=== PATIENT | female | born 1995 ===

== ENCOUNTER 2023-01-08 19:38 | Emergency (ER) | payer OTHER, SELFPAY ==
[2023-01-08 19:57] VITALS: BP 122/87; PULSE 89; RESP 16; TEMP 36.8; O2SAT 98; BMI 22.3
--- NOTE | 2023-01-08 19:58 | ED.URI ---
HPI - URI/Sore Throat General Chief Complaint: Allergic Reaction Stated Complaint: difficulty swallowing Time Seen by Provider: 01/08/23 22:22 Related Data Allergies Allergy/AdvReac Type Severity Reaction Status Date / Time No Known Allergies Allergy Verified 01/08/23 20:03 [facility] Social History Social History Alcohol intake: never Smoked in Last 30 Days: No Advance Directives: No Advance Directives Information Provided: No Physical Exam Vital Signs: Vital Signs: Last Vital Signs Temp 98 F 01/08/23 22:13 Pulse 64 01/08/23 22:13 Resp 12 01/08/23 22:13 BP 100/55 L 01/08/23 22:13 Pulse Ox 100 01/08/23 22:13 O2 Del Method Room Air 01/08/23 22:13 BMI result Body Mass Index 22.3 Course Course Course Narrative: RME: 27yo F w/no sig PMHx c/o sore throat swelling & swollen tongue since 3PM s/p taking new supplement. Also reports mild SOB and palpitations. Admit symptoms began right after taking new medication. Denies cough Talking in complete sentences, handling secretions, oropharynx WNL, uvula midline, no appreciable tongue swelling Benadryl, Pepcid, Claritin ordered Full HPI, ROS and PE to be performed by primary ED provider. Medications Administered Discontinued Medications Generic Name Dose Route Start Last Admin Trade Name Freq PRN Reason Stop Dose Admin Diphenhydramine HCl 50 mg 01/08/23 20:03 01/08/23 20:38 Diphenhydramine Hcl 25 Mg Capsule PO 01/08/23 20:04 50 mg ONCE ONE Administration Famotidine 20 mg 01/08/23 20:03 01/08/23 20:38 Famotidine 20 Mg Tablet PO 01/08/23 20:04 20 mg ONCE ONE Administration Loratadine 10 mg 01/08/23 20:03 01/08/23 20:38 Loratadine 10 Mg Tablet PO 01/08/23 20:04 10 mg ONCE ONE Administration Discharge Plan Discharge Clinical Impression: Allergic reaction Patient Disposition: Home, Self-Care Instructions: General Allergic Reaction (ED) Additional Instructions: Stay away from caffeinated drinks Referrals: Physician,Unknown J [Primary Care Provider] - Interventions: ED Discharge Assessment Last Done: 01/08/23 22:57 Discharge Date/Time: 01/08/23 22:58
[2023-01-08] MEDS: diphenhydrAMINE HCL 25 MG CAPSULE 50 MG PO (20:38)
[2023-01-08] MEDS: Loratadine 10 MG TABLET PO (20:38)
[2023-01-08] MEDS: Famotidine 20 MG TABLET PO (20:38)
--- NOTE | 2023-01-08 21:54 | PC.NURSE ---
pt medicated per MAR, pt denies SOB, CP, tongue swelling- resting quietly at this time, call [facility] within reach. awaiting provider eval
[2023-01-08 22:13] VITALS: BP 100/55; PULSE 64; RESP 12; TEMP 36.6; O2SAT 100
--- NOTE | 2023-01-08 22:47 | ED.ALLEREA ---
HPI - Allergic Reaction General Chief complaint: Allergic Reaction Stated complaint: difficulty swallowing Time Seen by Provider: 01/08/23 22:22 Source: patient Mode of arrival: ambulatory Limitations: no limitations History of Present Illness HPI narrative: 27-year-old female came in for evaluation symptoms after drink caffeinated drink. Patient had few sips of H&D caffeinated drink followed by face was flushed, became diaphoretic, felt palpitation and her heart is going fast. Symptoms lasted for about 1-2 hours. Patient also felt dry throat and feeling thirsty. No difficulty breathing. No chest pain. Related Data Allergies Allergy/AdvReac Type Severity Reaction Status Date / Time No Known Allergies Allergy Verified 01/08/23 20:03 Review of Systems Review of Systems: All other systems are reviewed and are negative Constitutional: Reports as per HPI and Reports no additional constitutional complaints Eyes: Reports as per HPI and Reports no additional eye complaints Reports system reviewed and no additional complaints, except as documented Cardiovascular: Reports as per HPI and Reports no additional cardiovascular complaints Respiratory: Reports as per HPI and Reports no additional respiratory complaints Gastrointestinal: Reports as per HPI and Reports no additional gastrointestinal complaints Genitourinary: Reports no additional female genitourinary complaints Musculoskeletal: Reports no additional musculoskeletal complaints Skin/Breast: Reports system reviewed and no additional complaints, except as docu Psychiatric: Reports no additional psychiatric complaints Endocrine: Reports no additional endocrine complaints Hematologic/Lymphatic: Reports no additional hematologic/lymphatic complaints Allergic/Immunologic: Reports no additional allergic/immunologic complaints Reports system reviewed and no additional complaints, except as documented and Reports Abnormal speech present PMFSH Social History Social History Alcohol intake: never Smoked in Last 30 Days: No Advance Directives: No Advance Directives Information Provided: No Physical Exam ED Vital Signs: Vital Signs - 24 hr 01/08/23 19:57 01/08/23 22:13 Temperature 98.2 F 98 F Pulse Rate 89 64 Respiratory Rate 16 12 Blood Pressure 122/87 100/55 L Pulse Oximetry 98 100 Oxygen Delivery Method Room Air Room Air BMI result Body Mass Index 22.3 Vital signs have been reviewed as appeared to be correct. Blood pressure normal. Heart rate normal. Respiration rate normal. Temperature normal. Oxygen saturation normal. Appearance: Alert. Oriented X3. No acute distress. Head: Normal external exam. Normocephalic. Atraumatic. No Harris signs noted. No raccoon eyes noted Eyes: PERRLA. EOMI. Conjunctiva and sclera normal. Eyelids normal. ENT: TM's Normal. Pharynx normal. Uvula midline. Moist mucous membranes. No trismus noted. No drooling noted. No muffled voice noted. Patent airway, no stridor. Neck: Normal inspection. Neck supple. FROM. No adenopathy. Thyroid Normal. No meningeal signs. No neck mass noted. CVS: Normal heart rate and rhythm. Heart sound normal. No murmurs noted. Pulses normal throughout. Respiratory: No respiratory distress. Painless inspiration. Breath sounds normal. No wheezes/rales/rhonchi noted. Chest nontender. No accessory muscle usage noted or decreased air movement noted. Abdomen: Soft and nontender. Bowel sounds normal in all 4 quadrants. No distention noted. No organomegaly noted. No visible injury noted. Back: No CVA tenderness. Full range of motion noted. Skin: Skin warm and dry. Normal skin color. Normal skin turgor. No rashes/lesions/lacerations noted. Extremities: No lower extremity edema. Extremities exhibit normal range of motion. Extremities nontender. Neuro: Oriented X 3. Cranial nerve exam: II-XII are grossly intact No motor deficit. No sensory deficit. Reflexes normal. Course Course Course Narrative: Allergic/side effect of caffeinated drink. Patient now is asymptomatic, patent airway, VSS. Medications Administered Discontinued Medications Generic Name Dose Route Start Last Admin Trade Name Freq PRN Reason Stop Dose Admin Diphenhydramine HCl 50 mg 01/08/23 20:03 01/08/23 20:38 Diphenhydramine Hcl 25 Mg Capsule PO 01/08/23 20:04 50 mg ONCE ONE Administration Famotidine 20 mg 01/08/23 20:03 01/08/23 20:38 Famotidine 20 Mg Tablet PO 01/08/23 20:04 20 mg ONCE ONE Administration Loratadine 10 mg 01/08/23 20:03 01/08/23 20:38 Loratadine 10 Mg Tablet PO 01/08/23 20:04 10 mg ONCE ONE Administration Medical Decision Making Differential Diagnosis Differential Diagnoses: The differential diagnosis associated with the presentation includes (Side effect of caffeinated drink, allergy to that drink, airway compromise.) Discharge Plan Discharge Clinical Impression: Allergic reaction Patient Disposition: Home, Self-Care Instructions: General Allergic Reaction (ED) Additional Instructions: Stay away from caffeinated drinks Referrals: Physician,Maximiliano J [Primary Care Provider] -
== END 2023-01-08 22:58 | disposition home or self-care (01) ==
PROVIDERS: Emergency Provider Emergency Medicine
DX: R13.10 Dysphagia, unspecified (principal)
CPT/HCPCS: 99283; 99284